=== PATIENT | male | born 1985 | race Caucasian/White ===

== ENCOUNTER 2017-11-26 22:26 | Emergency (ER) | payer MEDICAID ==
[~2017-11-26] VITALS: Ht 182.9 cm; Wt 81.6 kg
[2017-11-26 22:46] VITALS: Ht 182.9 cm; Wt 81.6 kg
[2017-11-27 00:32] VITALS: BP 118/67
== END 2017-11-27 00:32 | disposition home or self-care (01) ==
LOC: ED 22:26
DX: S16.1XXA Strain of muscle, fascia and tendon at neck level, initial encounter (principal); S09.90XA Unspecified injury of head, initial encounter; V49.9XXA Car occupant (driver) (passenger) injured in unspecified traffic accident, initial encounter; Y93.73 Activity, racquet and hand sports; Y92.488 Other paved roadways as the place of occurrence of the external cause; Y99.8 Other external cause status